=== PATIENT | female | born 1995 ===

== ENCOUNTER 2016-09-12 11:56 | Emergency (ER) | payer OTHER ==
[2016-09-12 12:30] LABS: HCG,QUALITATIVE URINE NEGATIVE (NEGATIVE)
[2016-09-12 12:39] LABS: SQUAMOUS EPITHIAL 2 /hpf (0-5); URINE BILIRUBIN NEGATIVE (NEGATIVE); URINE BLOOD NEGATIVE (NEGATIVE); URINE CLARITY Clear (Clear); URINE COLOR Yellow (YELLOW); URINE GLUCOSE (UA) NORMAL (Normal); URINE LEUKOCYTE ESTERASE 1+ Leu/uL (Negative); URINE NITRATE NEGATIVE (NEGATIVE); URINE PROTEIN NEGATIVE (NEGATIVE); URINE UROBILINOGEN NORMAL mg/dL (0.2-1.0)
[2016-09-12] MEDS ORDERED: Sodium Chloride 0.9% 1,000 ML IV ONE (13:18)
--- NOTE | 2016-09-12 13:30 | C.PDOC ---
Time Seen by Provider: 09/12/16 13:15 Chief Complaint (Nursing): Abdominal Pain Past Medical History Vital Signs: Last Vital Signs Temp 98 F 09/12/16 11:58 Pulse 75 09/12/16 11:58 Resp 20 09/12/16 11:58 BP 116/74 09/12/16 11:58 Pulse Ox 98 09/12/16 11:58 - Social History Hx Tobacco Use: No Hx Alcohol Use: No Hx Substance Use: No - Immunization History Hx Tetanus Toxoid Vaccination: No Hx Influenza Vaccination: No Hx Pneumococcal Vaccination: No ED Course And Treatment O2 Sat by Pulse Oximetry: 98 Disposition - Disposition Forms: [facility] (Vietnamese)
[2016-09-12] MEDS ORDERED: Sodium Chloride 0.9% 1,000 ML ONE (13:36)
[2016-09-12 13:59] LABS: BASO % 0.2 % (0.0-2.0); EOS # 0.1 K/uL (0.0-0.7); EOS % 0.7 % (0.0-4.0); LYMPH # 1.3 K/uL (1.0-4.3); LYMPH % 6.3 % (20.0-40.0); MEAN CORPUSCULAR HEMOGLOBIN 28.1 pg (27.0-31.0); MEAN PLATELET VOLUME 8.8 fL (7.2-11.7); MONO # 0.5 K/uL (0.0-0.8); MONO % 2.3 % (0.0-10.0); NEUT # 18.6 K/uL (1.8-7.0); NEUT % 90.5 % (50.0-75.0); PLATELET COUNT 347 K/uL (130-400); RBC 5.34 Mil/uL (3.80-5.20); RED CELL DISTRIBUTION WIDTH 14.5 % (11.5-14.5)
[2016-09-12 14:05] LABS: MEAN CELL VOLUME 85.1 fL (81.0-99.0); WHITE BLOOD COUNT 20.6 K/uL (4.8-10.8)
[2016-09-12 14:20] LABS: ALBUMIN 4.9 g/dL (3.5-5.0)
[2016-09-12 14:23] LABS: ALB/GLOB RATIO 1.2 (1.0-2.1); ALT/SGPT 34 U/L (9-52); AST/SGOT 36 U/L (14-36); BLOOD UREA NITROGEN 11 mg/dL (7-17); GFR AFRICAN-AMERICAN > 60; GFR NON-AFRICAN AMERICAN > 60
[2016-09-12 14:24] LABS: CALCIUM 9.8 mg/dl (8.6-10.4); LIPASE 68 U/L (23-300)
--- NOTE | 2016-09-12 14:25 | C.PDOC ---
History Of Present Illness 21 y/o female presents to ED with complaints of cramping abdominal pain to LLQ for 1 day. Patient states pain is intermittent and denies constipation, fever, chills or any other complaints at this time. Time Seen by Provider: 09/12/16 13:15 Chief Complaint (Nursing): Abdominal Pain History Per: Patient History/Exam Limitations: no limitations Onset/Duration Of Symptoms: Days Current Symptoms Are (Timing): Still Present Location Of Pain/Discomfort: LLQ Quality Of Discomfort: Cramping Past Medical History Reviewed: Historical Data, Nursing Documentation, Vital Signs Vital Signs: Last Vital Signs Temp 98.9 F 09/12/16 14:36 Pulse 91 H 09/12/16 14:36 Resp 20 09/12/16 14:36 BP 107/71 09/12/16 14:36 Pulse Ox 100 09/12/16 14:36 Family History: States: No Known Family Hx - Social History Hx Tobacco Use: No Hx Alcohol Use: No Hx Substance Use: No - Immunization History Hx Tetanus Toxoid Vaccination: No Hx Influenza Vaccination: No Hx Pneumococcal Vaccination: No Review Of Systems Except As Marked, All Systems Reviewed And Found Negative. Constitutional: Negative for: Fever, Chills Gastrointestinal: Positive for: Abdominal Pain. Negative for: Nausea, Vomiting , Constipation Skin: Negative for: Rash Physical Exam - Physical Exam Appears: No Acute Distress Skin: Normal Color, Warm Head: Atraumatic, Normacephalic Oral Mucosa: Moist Gastrointestinal/Abdominal: No Guarding, No Rebound, Other (Tympanic in Epigastric area, dull to right abdomen) Extremity: Normal ROM, Capillary Refill (<2 seconds) Neurological/Psych: Oriented x3 ED Course And Treatment - Laboratory Results Result Diagrams: 09/12/16 13:46 09/12/16 13:46 Lab Interpretation: Abnormal (+ leukocytosis, UA neg.) Urine POC: Negative O2 Sat by Pulse Oximetry: 98 (RA) Pulse Ox Interpretation: Normal Reevaluation Time: 18:26 Reassessment Condition: Improved Medical Decision Making Medical Decision Making: enteritis vs constipation to explain leukocytosis and crampy abd discomfort. normal CT Disposition Doctor Will See Patient In The: Office Counseled Patient/Family Regarding: Studies Performed, Diagnosis - Disposition Disposition: HOME/ ROUTINE Disposition Time: 18:27 Condition: GOOD Forms: [facility] (Nepali) - Clinical Impression Clinical Impression: Colicky left lower quadrant pain - Scribe Statement The provider has reviewed the documentation as recorded by the Elishaibe Zo Burgos All medical record entries made by the Elishaibjann were at my direction and personally dictated by me. I have reviewed the chart and agree that the record accurately reflects my personal performance of the history, physical exam, medical decision making, and the department course for this patient. I have also personally directed, reviewed, and agree with the discharge instructions and disposition.
--- NOTE | 2016-09-12 14:35 | RAD ---
PROCEDURE: Radiographs of the chest and abdomen (obstructive series) HISTORY: abd pain COMPARISON: None available. TECHNIQUE: AP radiograph of the chest, with upright and supine radiographs of the abdomen. FINDINGS: CHEST: The cardiomediastinal silhouette appears within normal limits. No focal consolidation, significant pleural effusion, or definite pneumothorax identified.Please note that chest x-ray has limited sensitivity for the detection of pulmonary masses. ABDOMEN AND PELVIS: Nonobstructive bowel gas pattern. Moderate constipation. No definite free air. No acute osseous abnormality is detected. IMPRESSION: Moderate constipation.
[2016-09-12 14:46] LABS: BANDS 4 % (0-2); LYMPHOCYTE 9 % (20-40); MONOCYTE 3 % (0-10); NEUTROPHIL 84 % (50-75); PLATELET ESTIMATE NORMAL (NORMAL); TOTAL CELLS COUNTED 100
[2016-09-12] MEDS ORDERED: Iodixanol 320 MG/ML 100 ML BOTTLE IV ONE (17:10)
--- NOTE | 2016-09-12 18:25 | CT ---
PROCEDURE: CT Abdomen and Pelvis with contrast HISTORY: LLQ ABD PAIN COMPARISON: Obstructive series performed 09/12/16 TECHNIQUE: Contrast dose: 100 mL Visipaque Radiation dose: Total exam DLP = 228.71 mGy-cm. This CT exam was performed using one or more of the following dose reduction techniques: Automated exposure control, adjustment of the mA and/or kV according to patient size, and/or use of iterative reconstruction technique. FINDINGS: LOWER THORAX: No visible consolidation, pleural effusion, or pneumothorax. LIVER: Unremarkable. GALLBLADDER AND BILE DUCTS: Unremarkable. PANCREAS: Unremarkable. SPLEEN: Unremarkable. ADRENALS: Unremarkable. KIDNEYS AND URETERS: The kidneys enhance symmetrically. No hydronephrosis or obstructing calculus identified. VASCULATURE: No aortic aneurysm. BOWEL: The stomach is nondistended. Lack of oral contrast limits evaluation for bowel pathology. Bowel loops appear within normal limits of caliber without evidence of obstruction. APPENDIX: The appendix appears within normal limits of caliber. No secondary signs of acute appendicitis. PERITONEUM: No significant free fluid. No definite free air. LYMPH NODES: No bulky adenopathy. BLADDER: Unremarkable. REPRODUCTIVE: Uterus is present. BONES: No acute osseous abnormality is detected. OTHER FINDINGS: None. IMPRESSION: No acute findings.
[2016-09-12 18:36] VITALS: BP 110/72; PULSE 92; RESP 18; TEMP 97; O2SAT 100
== END 2016-09-12 18:55 | disposition home or self-care (01) ==
LOC: C.ER 11:56
DX: R10.84 Generalized abdominal pain (principal)
CPT/HCPCS: 74022; 74177; 80053; 81001; 83690; 84703; 85025; 96374; 99284; J1885; J7040; Q9967